=== PATIENT | male | born 1960 | race Caucasian/White ===

== ENCOUNTER → 2023-05-28 14:16 | Outpatient (BNVA) | payer OTHER, SELFPAY | PROVIDERS: PCP Nurse Practitioner Family; Visit Provider Nurse Practitioner Family | DX: K21.9 Gastro-esophageal reflux disease without esophagitis (principal); R10.13 Epigastric pain | CPT/HCPCS: 80053; 80061; 82150; 83690; 85025; G0103 ==

== ENCOUNTER 2023-05-30 14:10 | Emergency (ER) | payer OTHER, SELFPAY ==
[2023-05-30 14:14] VITALS: BP 154/72; PULSE 73; RESP 16; TEMP 36.8; O2SAT 97
[2023-05-30 15:08] LABS: Basophils % 0.6 %; Eosinophils # 0.1 10^3/uL (0.0-0.8); Eosinophils % 0.9 %; Hematocrit 45.4 % (37-53); Lymphocytes # 1.3 10^3/uL (0.8-4.8); Lymphocytes % 19.2 %; Mean Corpuscular HGB Conc 33.5 g/dL (30-55); Mean Corpuscular Hemoglobin 31.8 pg (27-33); Mean Platelet Volume 9.2 fL (7.4-10.4); Monocytes # 0.6 10^3/uL (0.2-0.9); Monocytes % 8.5 %; Neutrophils # 4.81 10^3/uL (1.8-7.7); Neutrophils % 70.7 %; Nucleated Red Blood Cells % 0 %; Platelet Count 247 10^3/cmm (157-399); Red Blood Count 4.78 10^6/uL (3.85-5.65); Red Cell Distribution Width 11.9 % (12.1-15.1); White Blood Count 6.81 10^3/uL (3.29-11.43)
[2023-05-30 15:29] LABS: Alanine Aminotransferase 12 U/L (0-41); Albumin Level 4.1 g/dL (3.5-5.2); Alkaline Phosphatase 111 U/L (40-130); Anion Gap 11.8 (5-19); Aspartate Amino Transferase 16 U/L (0-40); Blood Urea Nitrogen 12 mg/dL (8-23); Carbon Dioxide 28 mmol/L (22-29); Chloride 101 mmol/L (98-107); Creatinine Clr Calc Pharmacy 112.8297; Glucose 118 mg/dL (65-115); Lipase 181 U/L (13-60); Osmolality Calculated 285 mOsm/kg (285-295); Potassium 3.8 mmol/L (3.5-5.1); Sodium 137 mmol/L (136-145); Total Bilirubin 0.2 mg/dL (0.15-1.2); Total Protein 7.1 g/dL (6.6-8.7)
[2023-05-30 15:30] LABS: Lactic Sepsis W/Reflex 1.2 mmol/L (0.5-2.2)
--- NOTE | 2023-05-30 17:17 | CTR_ITS ---
PROCEDURE INFORMATION: Exam: CT Abdomen And Pelvis With Contrast Exam date and time: 05/30/2023 6:06 PM Age: 62 years old Clinical indication: Pain and abnormal findings; Abnormal lab test; Elevated lipase; Abdominal pain; Prior surgery; Surgery date: 6+ months; Surgery type: Inguinal hernia repair; Patient HX: C/O epigastric pain with elevated lipase. ; Additional info: Epigastric/ruq pain/elevated lipase TECHNIQUE: Imaging protocol: Computed tomography of the abdomen and pelvis with contrast. Radiation optimization: All CT scans at this facility use at least one of these dose optimization techniques: automated exposure control; mA and/or kV adjustment per patient size (includes targeted exams where dose is matched to clinical indication); or iterative reconstruction. Contrast material: OMNI 350; Contrast volume: 100 ml; Contrast route: INTRAVENOUS (IV); COMPARISON: No relevant prior studies available. RADIATION DOSE METRICS: Total DLP (mGy-cm): 647.7 FINDINGS: Lungs: Lung bases are clear. Liver: There is no focal abnormality within the liver. Gallbladder and bile ducts: The gallbladder is normal. There is no common bile duct dilation. Pancreas: The pancreas is normal. Spleen: The spleen is normal. Adrenal glands: The adrenal glands are normal. Kidneys and ureters: 12 mm benign-appearing simple cyst arising from the mid left kidney. The right kidney is normal. There is no evidence of hydronephrosis. There is no evidence of renal or ureteral calcifications. Stomach and bowel: There is abnormal thickening of the terminal ileum. There is a nonspecific finding which could represent some nonspecific enteritis but is also worrisome for inflammatory bowel disease. Please correlate with clinical findings. There is no evidence of colitis/diverticulitis. There is no evidence of intestinal obstruction. Appendix: A normal appendix is identified. Intraperitoneal space: There is no evidence of free intraperitoneal fluid. Vasculature: The aorta demonstrates moderate atherosclerotic calcification. A retroaortic left renal vein is incidentally noted. There is no evidence of an abdominal aortic aneurysm. Lymph nodes: Unremarkable. No enlarged lymph nodes. Urinary bladder: Unremarkable as visualized. Reproductive: Unremarkable as visualized. Bones/joints: Unremarkable. No acute fracture. Soft tissues: Unremarkable. CT/CT abdomen pelvis w con* [id number] IMPRESSION: Abnormal thickening of the terminal ileum which could represent enteritis or inflammatory bowel disease.
--- NOTE | 2023-05-30 17:18 | W.ED.ABDPA2 ---
Documented by User: CHICHO Marquez 05/30/23 18:54 HPI - Abdominal Pain General: Chief Complaint: Abdominal Pain Stated Complaint: Lipase high, sent by Time Seen by Provider: 05/30/23 17:09 Source: patient Mode of arrival: ambulatory Limitations: no limitations History of Present Illness: Patient is a 62-year-old male presenting to the emergency department due to epigastric pain for the past 5 days. Patient noted that the pain initially started after eating breakfast 5 days ago, and was seen by primary care 3 days ago where he had labs drawn that showed an elevated lipase. The result came back today, and he was told to present to the emergency department for imaging. He denies to me any history of chronic alcohol use or gallbladder issues. However, he does state that he still has his gallbladder and that his son recently had his removed due to choledocholithiasis. Currently, he states that he is pain-free as he was prescribed Carafate and pantoprazole and this seems to have helped his symptoms. He is denying any nausea, vomiting, blood in vomit, bowel changes, fevers, or any other symptoms. He does note that the pain, when it is present, is primarily epigastric but he feels it some in the right upper quadrant as well as into the back. He denies noticing any bruising to his flanks or periumbilical region. No other symptoms to report at this time. MD elicited complaint: abdominal pain Pertinent past history: none Onset (ago): day(s) (5) Pain Consistency: intermittent and now resolved Location: Epigastric Severity: moderate Quality: stabbing Radiation: RUQ and back Exacerbating factors: eating Relieving factors: nothing Associated Symptoms: Reports no associated symptoms; Denies bloating, change in stool character, chills, constipation, diarrhea, dysuria, fever(s), hematochezia, nausea and vomiting Review of Systems General: Reports: 10 or more systems reviewed and unremarkable except in HPI and below Const: Denies: fever(s), chills, change in appetite, change in weight or diaphoresis ENMT: Denies: throat pain or hoarseness Card: Denies: chest pain, palpitations or lightheadedness Resp: Denies: dyspnea, productive cough or wheezing GI: Reports: abdominal pain; Denies: nausea, vomiting, diarrhea, constipation, bloating, change in stool character or hematochezia : Denies: flank pain, difficulty urinating, dysuria, urinary frequency or urinary urgency Musc: Reports: back pain; Denies: neck pain Skin/Breast: Denies: rash or new lesions Neuro: Denies: headache(s) or dizziness PFSH ED PFSH: Social History Smoking and tobacco/nicotine status: former use of tobacco/nicotine Quit status (tobacco/nicotine): has quit using Year quit tobacco: 2001 Second hand smoke exposure: No Alcohol intake: never Substance/Drug Use: current Substance/Drug use frequency: daily Adopted: No Caregiver/support person: No Lives independently: Yes Household members: spouse Housing: House Marital status: Number of children: 2 Highest education level completed: Associate Degree: Occupational, Technical, Vocational Program service: No Current occupational status: retired Physical Exam Const: COMMON NORMALS: no acute distress, average body habitus, patient oriented x3, no limitations, healthy appearing, alert and well nourished GENERAL APPEARANCE: cooperative and comfortable ORIENTATION/CONSCIOUSNESS: Yes awake HENMT: COMMON NORMALS: normocephalic, atraumatic, hearing grossly normal bilaterally, external ears normal, Normal external nose present, Normal nasal mucous membranes and turbinates present and moist oral mucous membranes HEAD & SCALP: normocephalic and atraumatic NOSE: Normal external nose present and Normal nasal mucous membranes and turbinates present EXTERNAL EAR: Yes external ears normal Eye: COMMON NORMALS: Equal, round and reactive pupils present, EOMs intact bilaterally, conjunctivae normal and normal visual chaudhary by confrontation CONJUNCTIVA: Yes conjunctivae normal PUPIL: Yes Equal, round and reactive pupils present Neck/C-Spine: COMMON NORMALS: full ROM, supple, no meningeal signs and no JVD Resp: COMMON NORMALS: normal respiratory effort, No retractions, No use of accessory muscles and clear to auscultation bilaterally AUSCULTATION: clear to auscultation bilaterally, no crackles, no rales, no rhonchi and no wheezes Cardio: COMMON NORMALS: no JVD, regular rate, regular rhythm, S1 normal heart sound present, S2 normal heart sound present, No gallops present (Cardio), No clicks present (Cardio), No murmurs present (Cardio), No rub (Cardio) and Peripheral pulses 2+ throughout RATE: regular rate RHYTHM: regular rhythm HEART SOUNDS: S1 normal heart sound present and S2 normal heart sound present PERIPHERAL PULSES: Peripheral pulses 2+ throughout GI: COMMON NORMALS: Normal to inspection, nondistended, normoactive bowel sounds present, Soft to palpation, non-tender, No hepatosplenomegaly present and no masses AUSCULTATION: Yes normoactive bowel sounds PALPATION: Yes Soft to palpation, No Guarding due to palpation present (GI), No Rigid due to palpation and Yes No hepatosplenomegaly present RECTAL EXAM: Yes deferred : COMMON NORMALS: Yes no CVA tenderness BLADDER/KIDNEY EXAM: Yes no CVA tenderness Back/Pelvis: COMMON NORMALS: no CVA tenderness Extremity: COMMON NORMALS: normal to inspection and full ROM Neuro: COMMON NORMALS: patient oriented x3, moves all extremities, no focal motor deficits and no sensory deficits noted SENSORIUM/ORIENTATION: Yes alert MENINGEAL SIGNS: Yes no meningeal signs Psych: COMMON NORMALS: mental status grossly normal, cooperative and speech normal SPEECH: Yes normal speech Skin: COMMON NORMALS: no rashes or lesions noted GENERAL SKIN EXAM: no rashes or lesions noted Course Vital Signs: Vital signs: Vital Signs Temperature 98.2 F 05/30/23 14:14 Pulse Rate 73 05/30/23 14:14 Respiratory Rate 16 05/30/23 14:14 Blood Pressure 154/72 05/30/23 14:14 Pulse Oximetry 97 05/30/23 14:14 Oxygen Delivery Me thod Room Air 05/30/23 14:14 MDM - Abdominal Pain Medical Decision Making This patient was seen and evaluated in the emergency department today as he was sent for further evaluation of his elevated lipase. Symptoms initially began 5 days ago, however his lab result from primary care visit 2 days ago illustrated the elevation in lipase, and was told to present for CT. On arrival patient's vitals stable and have remained so throughout his ED course. Examination completely normal, as he was not reporting pain at this time. Patient did state to me that he was prescribed Carafate and pantoprazole from primary care 2 days ago, and his pain has ceased since this. He did have a slight elevation in lipase today of 181, however the rest of his lab work was unremarkable. He did note to me a personal history of Crohn's disease, but has not been on medications for some time. CT abdomen pelvis showed some thickening of the terminal ileum, likely related to his history of Crohn's disease. He is not symptomatic at this time or tender in this area. I do believe his symptoms correlate with gastritis, possibly a peptic ulcer disease as his pain is related to eating. He is already on Carafate and pantoprazole, and I instructed him to continue taking these until his follow-up next week with primary care for reevaluation. I did give him a liter of fluids prior to discharge, and he has remained without symptoms throughout his ED course. Strict return precautions given, such as sudden increase in pain, fevers, or bleeding. Patient agrees with this plan and will be discharged home. Lab Data I reviewed the patient's lab results. 05/30/23 14:55 05/30/23 14:55 Labs/Radiology: Radiology Impressions Abdomen/Pelvis CT 05/30/23 17:17 IMPRESSION: Abnormal thickening of the terminal ileum which could represent enteritis or inflammatory bowel disease. Laboratory Results WBC 6.81 10^3/uL (3.29-11.43) 05/30/23 14:55 RBC 4.78 10^6/uL (3.85-5.65) 05/30/23 14:55 Hgb 15.20 g/dL (11.27-16.99) 05/30/23 14:55 Hct 45.4 % (37-53) 05/30/23 14:55 MCV 95.0 fl (82-101) 05/30/23 14:55 MCH 31.8 pg (27-33) 05/30/23 14:55 MCHC 33.5 g/dL (30-55) 05/30/23 14:55 RDW 11.9 % (12.1-15.1) L 05/30/23 14:55 Plt Count 247 10^3/cmm (157-399) 05/30/23 14:55 MPV 9.2 fL (7.4-10.4) 05/30/23 14:55 Neut % (Auto) 70.7 % 05/30/23 14:55 Lymph % (Auto) 19.2 % 05/30/23 14:55 [place] % (Auto) 8.5 % 05/30/23 14:55 Eos % (Auto) 0.9 % 05/30/23 14:55 Baso % (Auto) 0.6 % 05/30/23 14:55 Neut # (Auto) 4.81 10^3/uL (1.8-7.7) 05/30/23 14:55 Lymph # (Auto) 1.3 10^3/uL (0.8-4.8) 05/30/23 14:55 [place] # (Auto) 0.6 10^3/uL (0.2-0.9) 05/30/23 14:55 Eos # (Auto) 0.1 10^3/uL (0.0-0.8) 05/30/23 14:55 Baso # (Auto) 0.0 10^3/uL (0.0-0.1) 05/30/23 14:55 Nucleated RBC % (auto) 0 % 05/30/23 14:55 Nucleated RBCs # 0.0 /100WBC 05/30/23 14:55 Sodium 137 mmol/L (136-145) 05/30/23 14:55 Potassium 3.8 mmol/L (3.5-5.1) 05/30/23 14:55 Chloride 101 mmol/L (98-107) 05/30/23 14:55 Carbon Dioxide 28 mmol/L (22-29) 05/30/23 14:55 Anion Gap 11.8 (5-19) 05/30/23 14:55 BUN 12 mg/dL (8-23) 05/30/23 14:55 Creatinine 0.8 mg/dL (0.7-1.2) 05/30/23 14:55 GFR Calculation 98.0 mL/min (90-130) 05/30/23 14:55 Glucose 118 mg/dL (65-115) H 05/30/23 14:55 Calculated Osmolality 285 mOsm/kg (285-295) 05/30/23 14:55 Lactic Acid 1.2 mmol/L (0.5-2.2) 05/30/23 14:55 Calcium 9.0 mg/dL (8.5-10.5) 05/30/23 14:55 Magnesium 2.0 mg/dL (1.7-2.3) 05/30/23 14:55 Total Bilirubin 0.2 mg/dL (0.15-1.2) 05/30/23 14:55 AST 16 U/L (0-40) 05/30/23 14:55 ALT 12 U/L (0-41) 05/30/23 14:55 Alkaline Phosphatase 111 U/L (40-130) 05/30/23 14:55 Total Protein 7.1 g/dL (6.6-8.7) 05/30/23 14:55 Albumin 4.1 g/dL (3.5-5.2) 05/30/23 14:55 Globulin 3.0 g/dL (1.3-4.6) 05/30/23 14:55 Lipase 181 U/L (13-60) H 05/30/23 14:55 Urine Color Yellow (Yellow) 05/30/23 17:39 Urine Appearance Clear (CLEAR) 05/30/23 17:39 Urine pH 5 (5-7) 05/30/23 17:39 Ur Specific [place] 1.025 (1.005-1.030) 05/30/23 17:39 Urine Protein Neg (Negative) 05/30/23 17:39 Urine Glucose (UA) Norm (Normal) 05/30/23 17:39 Urine Ketones Negative (Negative) 05/30/23 17:39 Urine Blood Neg (Negative) 05/30/23 17:39 Urine Nitrate Negative (Negative) 05/30/23 17:39 Urine Bilirubin Neg (Negative) 05/30/23 17:39 Urine Urobilinogen Neg mg/dL (Negative) 05/30/23 17:39 Ur Leukocyte Esterase Negative (Negative) 05/30/23 17:39 All radiology interpretation(s) finalized by discharge Discharge Plan Discharge Patient Disposition: Home Clinical Impression: Elevated lipase Gastritis Qualifiers: Gastritis type: unspecified gastritis Chronicity: unspecified Gastritis bleeding: without bleeding Qualified Code(s): K29.70 - Gastritis, unspecified, without bleeding Condition: Stable Prescriptions: No Action One-A-Day Men's Multivitamin 400-20-300 mcg tablet PO omeprazole magnesium [Acid [employer] (omeprazole)] 20 mg capsule,delayed release(DR/EC) 20 mg PO DAILY ascorbic acid (vitamin C) 1,000 mg tablet 500 mg PO DAILY pantoprazole [Protonix] 40 mg tablet,delayed release (DR/EC) 40 mg PO BID Qty: 60 0RF sucralfate [Carafate] 1 gram tablet 1 g PO TID Qty: 90 0RF Discharge Orders: Discharge ED (Routine); Ordered 05/30/23 Ordered By: Jassi Thomas Referrals: Leeanne Clayton FNP-C [Primary Care Provider] - Discharge Diet: Usual diet Discharge Activity: Increase activity as tolerated Patient Instructions: Gastritis (ED) Activity Restrictions/Additional Instructions: Continue your Carafate and pantoprazole as prescribed. Keep follow-up with primary care next week to discuss ED visit and further evaluation. Plenty of fluids. Please return if you develop any new or concerning symptoms. Coding Level of Care Code ED Clothes Drier Repairer for Chg Fwd Documented by User: Blake Clements DO 05/31/23 05:59 HPI - Abdominal Pain General: Chief Complaint: Abdominal Pain Stated Complaint: Lipase high, sent by dr Barajas Seen by Provider: 05/30/23 17:09 PFSH ED PFSH: Social History Smoking and tobacco/nicotine status: former use of tobacco/nicotine Quit status (tobacco/nicotine): has quit using Year quit tobacco: 2001 Second hand smoke exposure: No Alcohol intake: never Substance/Drug Use: current Substance/Drug use frequency: daily Adopted: No Caregiver/support person: No Lives independently: Yes Household members: spouse Housing: House Marital status: Number of children: 2 Highest education level completed: Associate Degree: Occupational, Technical, Vocational Program service: No Current occupational status: retired Course Vital Signs: Vital signs: Vital Signs Temperature 98.2 F 05/30/23 14:14 Pulse Rate 73 05/30/23 14:14 Respiratory Rate 16 05/30/23 14:14 Blood Pressure 154/72 05/30/23 14:14 Pulse Oximetry 97 05/30/23 14:14 Oxygen Delivery Me thod Room Air 05/30/23 14:14 MDM - Abdominal Pain Medical Decision Making This patient was seen and evaluated in the emergency department today as he was sent for further evaluation of his elevated lipase. Symptoms initially began 5 days ago, however his lab result from primary care visit 2 days ago illustrated the elevation in lipase, and was told to present for CT. On arrival patient's vitals stable and have remained so throughout his ED course. Examination completely normal, as he was not reporting pain at this time. Patient did state to me that he was prescribed Carafate and pantoprazole from primary care 2 days ago, and his pain has ceased since this. He did have a slight elevation in lipase today of 181, however the rest of his lab work was unremarkable. He did note to me a personal history of Crohn's disease, but has not been on medications for some time. CT abdomen pelvis showed some thickening of the terminal ileum, likely related to his history of Crohn's disease. He is not symptomatic at this time or tender in this area. I do believe his symptoms correlate with gastritis, possibly a peptic ulcer disease as his pain is related to eating. He is already on Carafate and pantoprazole, and I instructed him to continue taking these until his follow-up next week with primary care for reevaluation. I did give him a liter of fluids prior to discharge, and he has remained without symptoms throughout his ED course. Strict return precautions given, such as sudden increase in pain, fevers, or bleeding. Patient agrees with this plan and will be discharged home Chart reviewed Lab Data 05/30/23 14:55 05/30/23 14:55 Labs/Radiology: Radiology Impressions Abdomen/Pelvis CT 05/30/23 17:17 IMPRESSION: Abnormal thickening of the terminal ileum which could represent enteritis or inflammatory bowel disease. Laboratory Results WBC 6.81 10^3/uL (3.29-11.43) 05/30/23 14:55 RBC 4.78 10^6/uL (3.85-5.65) 05/30/23 14:55 Hgb 15.20 g/dL (11.27-16.99) 05/30/23 14:55 Hct 45.4 % (37-53) 05/30/23 14:55 MCV 95.0 fl (82-101) 05/30/23 14:55 MCH 31.8 pg (27-33) 05/30/23 14:55 MCHC 33.5 g/dL (30-55) 05/30/23 14:55 RDW 11.9 % (12.1-15.1) L 05/30/23 14:55 Plt Count 247 10^3/cmm (157-399) 05/30/23 14:55 MPV 9.2 fL (7.4-10.4) 05/30/23 14:55 Neut % (Auto) 70.7 % 05/30/23 14:55 Lymph % (Auto) 19.2 % 05/30/23 14:55 [place] % (Auto) 8.5 % 05/30/23 14:55 Eos % (Auto) 0.9 % 05/30/23 14:55 Baso % (Auto) 0.6 % 05/30/23 14:55 Neut # (Auto) 4.81 10^3/uL (1.8-7.7) 05/30/23 14:55 Lymph # (Auto) 1.3 10^3/uL (0.8-4.8) 05/30/23 14:55 [place] # (Auto) 0.6 10^3/uL (0.2-0.9) 05/30/23 14:55 Eos # (Auto) 0.1 10^3/uL (0.0-0.8) 05/30/23 14:55 Baso # (Auto) 0.0 10^3/uL (0.0-0.1) 05/30/23 14:55 Nucleated RBC % (auto) 0 % 05/30/23 14:55 Nucleated RBCs # 0.0 /100WBC 05/30/23 14:55 Sodium 137 mmol/L (136-145) 05/30/23 14:55 Potassium 3.8 mmol/L (3.5-5.1) 05/30/23 14:55 Chloride 101 mmol/L (98-107) 05/30/23 14:55 Carbon Dioxide 28 mmol/L (22-29) 05/30/23 14:55 Anion Gap 11.8 (5-19) 05/30/23 14:55 BUN 12 mg/dL (8-23) 05/30/23 14:55 Creatinine 0.8 mg/dL (0.7-1.2) 05/30/23 14:55 GFR Calculation 98.0 mL/min (90-130) 05/30/23 14:55 Glucose 118 mg/dL (65-115) H 05/30/23 14:55 Calculated Osmolality 285 mOsm/kg (285-295) 05/30/23 14:55 Lactic Acid 1.2 mmol/L (0.5-2.2) 05/30/23 14:55 Calcium 9.0 mg/dL (8.5-10.5) 05/30/23 14:55 Magnesium 2.0 mg/dL (1.7-2.3) 05/30/23 14:55 Total Bilirubin 0.2 mg/dL (0.15-1.2) 05/30/23 14:55 AST 16 U/L (0-40) 05/30/23 14:55 ALT 12 U/L (0-41) 05/30/23 14:55 Alkaline Phosphatase 111 U/L (40-130) 05/30/23 14:55 Total Protein 7.1 g/dL (6.6-8.7) 05/30/23 14:55 Albumin 4.1 g/dL (3.5-5.2) 05/30/23 14:55 Globulin 3.0 g/dL (1.3-4.6) 05/30/23 14:55 Lipase 181 U/L (13-60) H 05/30/23 14:55 Urine Color Yellow (Yellow) 05/30/23 17:39 Urine Appearance Clear (CLEAR) 05/30/23 17:39 Urine pH 5 (5-7) 05/30/23 17:39 Ur Specific [place] 1.025 (1.005-1.030) 05/30/23 17:39 Urine Protein Neg (Negative) 05/30/23 17:39 Urine Glucose (UA) Norm (Normal) 05/30/23 17:39 Urine Ketones Negative (Negative) 05/30/23 17:39 Urine Blood Neg (Negative) 05/30/23 17:39 Urine Nitrate Negative (Negative) 05/30/23 17:39 Urine Bilirubin Neg (Negative) 05/30/23 17:39 Urine Urobilinogen Neg mg/dL (Negative) 05/30/23 17:39 Ur Leukocyte Esterase Negative (Negative) 05/30/23 17:39 Discharge Plan Discharge Patient Disposition: Home Clinical Impression: Elevated lipase Gastritis Qualifiers: Gastritis type: unspecified gastritis Chronicity: unspecified Gastritis bleeding: without bleeding Qualified Code(s): K29.70 - Gastritis, unspecified, without bleeding Condition: Stable Prescriptions: No Action One-A-Day Men's Multivitamin 400-20-300 mcg tablet PO omeprazole magnesium [Acid [employer] (omeprazole)] 20 mg capsule,delayed release(DR/EC) 20 mg PO DAILY ascorbic acid (vitamin C) 1,000 mg tablet 500 mg PO DAILY pantoprazole [Protonix] 40 mg tablet,delayed release (DR/EC) 40 mg PO BID Qty: 60 0RF sucralfate [Carafate] 1 gram tablet 1 g PO TID Qty: 90 0RF Discharge Orders: Discharge ED (Routine); Ordered 05/30/23 Ordered By: Jassi Thomas Referrals: Leeanne Clayton FNP-C [Primary Care Provider] - Discharge Diet: Usual diet Discharge Activity: Increase activity as tolerated Patient Instructions: Gastritis (ED) Activity Restrictions/Additional Instructions: Continue your Carafate and pantoprazole as prescribed. Keep follow-up with primary care next week to discuss ED visit and further evaluation. Plenty of fluids. Please return if you develop any new or concerning symptoms. Coding Level of Care Code ED Clothes Drier Repairer for Colleen Quiñones
[2023-05-30] MEDS: sodium chloride 0.9% 1,000 ML 999 ML IV (17:36)
[2023-05-30 17:46] LABS: Add Urine Microscopic? NO; Charge for UA Resulting for Rev
[2023-05-30 17:56] LABS: Bilirubin Urine Neg (Negative); Blood Urine Neg (Negative); Glucose Urine UA Norm (Normal); Ketones Urine Negative (Negative); Leukocyte Esterase Urine Negative (Negative); Nitrate Urine Negative (Negative); Protein Urine Neg (Negative); Specific Gravity, Urine 1.025 (1.005-1.030); Urine Appearance Clear (CLEAR); Urine Color Yellow (Yellow); Urobilinogen Urine Neg (Negative); pH Urine 5 (5-7)
== END 2023-05-30 19:19 | disposition home or self-care (01) ==
PROVIDERS: Family Medicine; Emergency Provider Physician Assistant; PCP Nurse Practitioner Family
DX: K29.70 Gastritis, unspecified, without bleeding (principal); R74.8 Abnormal levels of other serum enzymes; Z87.891 Personal history of nicotine dependence
CPT/HCPCS: 36415; 74177; 80053; 81003; 83605; 83690; 83735; 85025; 99284; J7030; Q9967

== ENCOUNTER → 2023-06-13 11:03 | Outpatient (BNVA) | payer OTHER, SELFPAY | PROVIDERS: PCP Nurse Practitioner Family; Visit Provider Nurse Practitioner Family | DX: R74.8 Abnormal levels of other serum enzymes (principal) | CPT/HCPCS: 82150; 83690 ==